=== PATIENT | female | born 1960 | race African-American/Black ===

== ENCOUNTER 2022-05-08 09:57 | Emergency (ER) | payer OTHER ==
[2022-05-08 10:07] VITALS: BP 152/78; PULSE 99; RESP 19; TEMP 98.1; BMI 28.5
[2022-05-08] MEDS ORDERED: IBUPROFEN 600 MG TABLET (FP) PO ONE (10:46)
== END 2022-05-08 11:21 | disposition home or self-care (01) ==
LOC: JERFT 09:57
DX: S96.912A Strain of unspecified muscle and tendon at ankle and foot level, left foot, initial encounter (principal); W01.0XXA Fall on same level from slipping, tripping and stumbling without subsequent striking against object, initial encounter
CPT/HCPCS: 73610-TC-LT-FY; 73630-TC-LT; 99283-25

== ENCOUNTER 2023-06-15 04:42 | Day surgery (SDC) | payer OTHER ==
[2023-06-09 12:00] VITALS: BMI 27.3
[2023-06-15 11:24] VITALS: TEMP 98
[2023-06-15 11:48] VITALS: PULSE 64
[2023-06-15 11:52] VITALS: BP 111/53; RESP 15
== END 2023-06-15 12:02 | disposition home or self-care (01) ==
LOC: JASU-ENDO 04:42
PROVIDERS: ATTEND Internal Medicine Gastroenterology
PROC: 0DJD8ZZ Inspection of Lower Intestinal Tract, Via Natural or Artificial Opening Endoscopic (ICD-10-PCS; principal; 2023-06-15 09:45)
DX: Z12.11 Encounter for screening for malignant neoplasm of colon (principal); K57.30 Diverticulosis of large intestine without perforation or abscess without bleeding; K64.8 Other hemorrhoids